=== PATIENT | male | born 1985 | race Caucasian/White ===

== ENCOUNTER → 2017-01-10 | Outpatient (CLI) | payer OTHER ==
[~2017-01-10] MED LIST: CEPH500 PO; DOXY100 PO; HYDACE5 PO; MUPI2TO TOP; PHENY100ER PO; RXHYDACE PO; SILSUL1TC TOP; SULTRIDS PO
== END | disposition home or self-care (01) ==
LOC: LAB SRC 14:54
DX: H92.12 Otorrhea, left ear (principal); H60.332 Swimmer's ear, left ear
CPT/HCPCS: 87070; 87077; 87186; 87205

== ENCOUNTER → 2020-05-19 | Outpatient (CLI) | payer OTHER ==
[2020-05-19 10:04] LABS: BASOPHILS ABSOLUTE AUTO 0.03 K/mm3 (0.00-0.23); BASOPHILS PERCENT AUTO 1 % (0-2); EOSINOPHILS ABSOLUTE AUTO 0.11 K/mm3 (0.00-0.68); EOSINOPHILS PERCENT AUTO 2 % (0-6); Hematocrit 47.5 % (37.0-53.0); Hemoglobin 16.8 g/dL (13.5-17.5); IMMATURE GRAN ABSOLUTE AUTO 0.01 K/mm3 (0.00-0.10); IMMATURE GRAN PERCENT AUTO 0 % (0-1); LYMPHOCYTES ABSOLUTE AUTO 1.64 K/mm3 (0.84-5.20); LYMPHOCYTES PERCENT AUTO 31 % (21-46); MONOCYTES ABSOLUTE AUTO 0.27 K/mm3 (0.16-1.47); MONOCYTES PERCENT AUTO 5 % (4-13); Mean Corpuscular HGB Conc 35.4 g/dL (31.5-36.5); Mean Corpuscular Volume 91 fL (80-100); Mean Platelet Volume 9.7 fL (9.1-12.4); NEUTROPHILS ABSOLUTE AUTO 3.18 K/mm3 (1.96-9.15); NEUTROPHILS PERCENT AUTO 61 % (41-73); Platelet Count 265 K/mm3 (150-400); RDW Coefficient Variation 12.7 % (11.7-14.2); RDW Standard Deviation 42.2 fL (35.1-46.3); Red Blood Cell Count 5.25 M/mm3 (4.30-5.90); White Blood Cell Count 5.24 K/mm3 (4.00-11.30)
[2020-05-19 10:19] LABS: Alanine Aminotransfer (ALT/SGP 36 U/L (12-78); Albumin/Globulin Ratio 1.1 (0.8-1.8); Alk Phos 94 U/L (40-126); Anion Gap 10 mmol/L (6-16); Aspartate Aminotrans (AST/SGOT 21 U/L (12-37); Bilirubin, Total 0.5 mg/dL (0.1-1.0); Blood Urea Nitrogen 14 mg/dL (8-24); Bun/Creatinine Ratio 18.7 (12.0-20.0); CO2, Blood 25 mmol/L (21-32); Chloride, Blood 105 mmol/L (98-108); Creatinine, Blood 0.75 mg/dL (0.60-1.20); Globulin, Blood 3.6 g/dL (2.2-4.0); Glomerular Filtration Rate >60 (60-); Glucose, Blood 95 mg/dL (70-99); Potassium, Blood 4.1 mmol/L (3.5-5.5); Sodium, Blood 140 mmol/L (136-145); Total Protein, Blood 7.6 g/dL (6.4-8.2); Troponin I <0.017 ng/mL (0.000-0.040)
== END | disposition home or self-care (01) ==
LOC: LAB SHORT 10:00 → LAB EV 10:00 → LAB 10:00
PROVIDERS: Chiropractor
DX: R07.9 Chest pain, unspecified (principal)
CPT/HCPCS: 80053; 84484; 85025; 85379

== ENCOUNTER 2021-12-09 11:59 | Emergency (ER) | payer OTHER ==
[~2021-12-09] VITALS: Ht 190.5 cm; Wt 149.7 kg
[2021-12-09] MEDS ORDERED: CEPH500 PO (14:29)
[2021-12-09] MEDS ORDERED: OXYC5 PO (14:29)
[2021-12-09] MEDS ORDERED: FLUC200 PO (14:37)
== END 2021-12-09 14:49 | disposition home or self-care (01) ==
LOC: ER 11:59
DX: S42.211A Unspecified displaced fracture of surgical neck of right humerus, initial encounter for closed fracture (principal); S09.90XA Unspecified injury of head, initial encounter; S51.021A Laceration with foreign body of right elbow, initial encounter; V68.4XXA Person boarding or alighting a heavy transport vehicle injured in noncollision transport accident, initial encounter
CPT/HCPCS: 70450; 73030; 73080; 90714; A9270; J1885; J2405; J3010; J7030

== ENCOUNTER 2021-12-16 08:19 | Day surgery (SDC) | payer OTHER ==
[~2021-12-16] VITALS: Ht 190.5 cm; Wt 156.5 kg
[~2021-12-16 08:19] MED LIST changes: +FLUC200 PO; +OXYC5 PO
[2021-12-16] MEDS ORDERED: PHENY100ER PO (08:50)
--- NOTE | 2021-12-16 09:31 | NUR ---
12/16/21 0931 Marbella Rueda TIMEOUT AND SITE CHECK DONE WITH DR MATHEWS FOR NERVE BLOCK
--- NOTE | 2021-12-16 10:38 | NUR ---
12/16/21 Parth Ibrahim LACERATION NOTED ABOVE AND BELOW THE ELBOW ON THE POSTERIOR SIDE OF ARM. SURGEON AWARE. WET PREP USED DUE TO THE OPEN WOUNDS.
--- NOTE | 2021-12-16 17:10 | NUR ---
12/16/21 1710 OPAL CHUNG PT WAS PALE AND SWEATING UPON WAKING IN PACU. PT GIVEN COLD CLOTH TO HEAD AND UNCOVERED PTS FEET UPON REQUEST. PT DENIED FEELING ANY PAIN OR NAUSEA BUT BEGAN VOMITTING IMMEDIATELY WHEN BROUGHT INTO STEP DOWN. ZOFRAN 4MG IV GIVEN AND ICE PACK TO BACK OF NECK. VOMITTING RESOLVED. PT COLOR RETURNED 1630. PT STATED THAT HE WAS FEELING BETTER.
== END 2021-12-16 17:05 | disposition home or self-care (01) ==
LOC: ORSCSDS 08:19
PROVIDERS: Orthopaedic Surgery
PROC: 0PSC04Z Reposition Right Humeral Head with Internal Fixation Device, Open Approach (ICD-10-PCS; principal; 2021-12-16 09:30)
DX: S42.211A Unspecified displaced fracture of surgical neck of right humerus, initial encounter for closed fracture (principal); V87.8XXA Person injured in other specified noncollision transport accidents involving motor vehicle (traffic), initial encounter; F17.210 Nicotine dependence, cigarettes, uncomplicated; G40.909 Epilepsy, unspecified, not intractable, without status epilepticus; E66.01 Morbid (severe) obesity due to excess calories; Z68.41 Body mass index [BMI] 40.0-44.9, adult
CPT/HCPCS: C1713; J0690; J1100; J2250; J2405; J2704; J3010; J7120